=== PATIENT | female | born 1985 | race Caucasian/White ===

== ENCOUNTER 2023-08-06 19:25 | Inpatient (IN) | payer OTHER, SELFPAY ==
--- OUTSIDE RECORDS SUMMARY | 2023-08-06 19:29 | XMS REPORT | Continuity of Care Document ---
Author Name Unknown Address [address] [facility] [address] [place] [address] [facility] thconnect Address [address] [facility] [address] [place] [address] Care Team Providers Care Dryer Feeder Name Role Phone NO, PCP Primary Care Physician UnavailDEBORAH Landaverde Attending Clinician Unavailable Nallely Fleming NP Attending Clinician [id number] Attending Clinician Unavailable ANNKIA_GCBZW_Kaarama_S Attending Clinician Dotty Ruiz NP Attending Clinician [phone] Doctor Unassigned, [place] Attending Clinician DOTTY Oliva Attending Clinician Yaneli vicente GC_GCBZW_Jva_S Admitting Clinician Yaneli vicente Payers Payer Name Policy Type Policy Number Effective Date Expirati on Date Source Problems Condition Name Condition Details Condition Category Status Onset Date Resolution Date Last Treatment Date Treating Clinician Comments Source General counseling and advice on female contracept ion General counseling and advice on female contracept ion Disease Active 09-13 00:00: 00 [facility] Family planning, IUD (intrauter ine device) check/rein sertion/re moval Family planning, IUD (intrauter ine device) check/rein sertion/re moval Disease Active 09-13 00:00: 00 [facility] BMI 32.0-32.9, adult BMI 32.0-32.9, adult Disease Active 09-13 00:00: 00 [facility] Allergies, Adverse Reactions, Alerts Allergy Name Allergy Type Status Severity Reaction(s) Onset Date Inactive Date Treating Clinician Comments Source No Known Drug Allergie s DA Active U 04-25 00:00: 00 [facility] nickel DA Active MS 04-25 00:00: 00 [facility] NO KNOWN ALLERGIE S Drug Class Active [facility] Social History Social Habit Start Date Stop Date Quantity Comments Source History of tobacco use Cigarette Smoker [facility] Gender identity [facility] Sexual orientation [facility] Alcohol intake 2022-09-14 00:00:00 2022-09-14 00:00:00 Current drinker of alcohol (finding) [facility] Tobacco use and exposure 2022-09-13 00:00:00 2022-09-13 00:00:00 Smokeless tobacco non-user [facility] History of Social function 2022-09-13 00:00:00 2022-09-13 00:00:00 [facility] Sex Assigned At 1985 00:00:00 1985 00:00:00 [facility] Smoking Status Start Date Stop Date Source Tobacco smoking consumption unknown [facility] Ex-smoker 2022-09-13 00:00:00 2022-09-13 00:00:00 [facility] Never smoked tobacco [facility] Medications Ordered Medication Name Filled Medication Name Start Date Stop Date Current Medication? Ordering Clinician Indication Dosage Frequency Signature (SIG) Comments Components Source terconazole 80 mg vaginal suppository 09-30 00:00: 00 10-04 04:59 :00 No [id number] 80mg Insert 1 Suppositor y into vagina at bedtime for 3 days. [facility] norethindro ne-ethinyl estradiol (LOESTRIN 05/05, 21,) 1-20 mg-mcg per tablet 09-14 00:00: 00 Yes [id number] 1{tbl} Take 1 tablet by mouth in the morning. [facility] phentermine 37.5 MG capsule phentermine 37.5 MG capsule 2019-0 -11 13:57: 37 Yes 37.5mg Take 37.5 mg by mouth every morning. [facility] Immunizations Ordered Immunization Name Filled Immunization Name Date Status Comments Source PPD Test PPD Test 2023-06-01 00:00:00 Completed [facility] PPD Test PPD Test 2020-08-17 00:00:00 Completed [facility] SARS-COV-2 COVID-19 PFIZER VACCINE 2020-06-29 00:00:00 Completed [facility] SARS-COV-2 COVID-19 PFIZER VACCINE 2020-06-29 00:00:00 Completed [facility] SARS-COV-2 COVID-19 PFIZER VACCINE 2020-06-29 00:00:00 Completed [facility] SARS-COV-2 COVID-19 PFIZER VACCINE 2020-06-29 00:00:00 Completed [facility] SARS-COV-2 COVID-19 PFIZER VACCINE 2020-06-29 00:00:00 Completed [facility] SARS-COV-2 COVID-19 PFIZER VACCINE 2020-06-29 00:00:00 Completed [facility] SARS-COV-2 COVID-19 PFIZER VACCINE 2020-06-29 00:00:00 Completed [facility] SARS-COV-2 COVID-19 PFIZER VACCINE 2020-06-08 00:00:00 Completed [facility] SARS-COV-2 COVID-19 PFIZER VACCINE 2020-06-08 00:00:00 Completed [facility] SARS-COV-2 COVID-19 PFIZER VACCINE 2020-06-08 00:00:00 Completed [facility] SARS-COV-2 COVID-19 PFIZER VACCINE 2020-06-08 00:00:00 Completed [facility] SARS-COV-2 COVID-19 PFIZER VACCINE 2020-06-08 00:00:00 Completed [facility] SARS-COV-2 COVID-19 PFIZER VACCINE 2020-06-08 00:00:00 Completed [facility] SARS-COV-2 COVID-19 PFIZER VACCINE 2020-06-08 00:00:00 Completed [facility] SARS-COV-2 COVID-19 PFIZER VACCINE Unknown Completed [facility] SARS-COV-2 COVID-19 PFIZER VACCINE Unknown Completed [facility] Vital Signs Vital Name Observation Time Observation Value Comments S ource Respiratory rate 2022-09-14 13:51:00 16 /min [facility] Body height 2022-09-14 13:51:00 167.6 cm [facility] Body weight 2022-09-14 13:51:00 91.536 kg [facility] BMI 2022-09-14 13:51:00 32.57 kg/m2 [facility] Oxygen saturation in Arterial blood by Pulse oximetry 2022-09-14 13:51:00 98 /min [facility] Systolic blood pressure 2022-09-14 13:51:00 131 mm[Hg] [facility] Diastolic blood pressure 2022-09-14 13:51:00 81 mm[Hg] [facility] Heart rate 2022-09-14 13:51:00 69 /min [facility] Body temperature 2022-09-14 13:51:00 36.61 Becki [facility] Systolic blood pressure 2022-09-13 18:21:00 133 mm[Hg] [facility] Diastolic blood pressure 2022-09-13 18:21:00 71 mm[Hg] [facility] Heart rate 2022-09-13 18:21:00 80 /min [facility] Body temperature 2022-09-13 18:21:00 36.89 Becki [facility] Respiratory rate 2022-09-13 18:21:00 16 /min [facility] Body height 2022-09-13 18:21:00 167.6 cm [facility] Body weight 2022-09-13 18:21:00 92.262 kg [facility] BMI 2022-09-13 18:21:00 32.83 kg/m2 [facility] Oxygen saturation in Arterial blood by Pulse oximetry 2022-09-13 18:21:00 98 /min [facility] Procedures Procedure Date / Time Performed Performing Clinicia n Source TB SKIN TEST PLACEMENT 2023-06-01 15:36:03 Johanny Fleming [facility] ASSIGNMENT OF BENEFITS 2022-09-13 18:21:03 Docto r Unassigned, [place] [facility] Encounters Start Date/Time End Date/Time Encounter Type Admission Type Attending Clinicians Care Facility Care Department Encounter ID Source 2023-06-03 16:49:39 2023-06-03 16:49:39 Outpatient DEBORAH MEDRANO [facility] [id number] [facility] 2023-06-01 15:50:00 2023-06-01 15:50:00 Office Visit Nallely Fleming [id number], [facility] Diagnosti c [facility], [facility] 1..840.114 350.1.13.41 8.2.7.2.686 [id number] [facility] 2023-02-10 00:00:00 2023-02-10 00:00:00 Outpatient GC_GCBZW_Ka diyala_S [facility] [id number] [facility] 2022-10-04 00:00:00 2022-10-04 00:00:00 Letter (Out) Dotty Wise [facility] 1.840.114 350.1.13.10 4.2.7.2.686 [id number] [facility] 2022-10-03 00:00:00 2022-10-03 00:00:00 Patient Secure Msg Doctor Unassigned, [place] [facility] 1..114 350.1.13.10 4.2.7.2.686 [id number] [facility] 2022-09-30 00:00:00 2022-09-30 00:00:00 Telephone Dotty Wise [facility] 1..114 350.1.13.10 4.2.7.2.686 [id number] [facility] 2022-09-14 08:30:00 2022-09-14 09:16:33 Outpatient R DOTTY WISE [facility]ERY[facility] [id number] [facility] 2022-09-14 08:30:00 2022-09-14 09:16:33 Office Visit Dotty Wise [facility] 1.2.840.114 350.1.13.10 4.2.7.2.686 [id number] [facility] 2022-09-13 13:00:00 2022-09-13 13:42:52 Outpatient R DOTTY WISE [facility] [id number] [facility] 2022-09-13 13:00:00 2022-09-13 13:42:52 [facility] 1.2.840.114 350.1.13.10 4.2.7.2.686 [id number] 134 [id number] [facility] 2022-09-13 00:00:00 2022-09-13 00:00:00 Orders Only Doctor Unassigned, [place] [facility] 1.2.840.114 350.1.13.10 4.2.7.2.686 [id number] [facility] Notes Date/Time Note Provider Source 2023-06-01 16:43:31 [id number]/JXGo HkStrqgQjyVamh42 RBCFgwdfD5YNT7Ch9k+WjIz834pdD+7i4BEs J2729-54-93O13:43:31 * Nallely Fleming, MISTI - 06/01/2023 3:50 PM REPLENISHMENT BUYER Subjective: The patient is a 38 y.o. female who is here for a TB skin test. TB Placement 1. Why are you getting a TB test today? Select all that apply.: a. 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 Have you ever received a BCG (bacille Calmette-Rochelle) vaccination for TB? This vaccine is not widely used in the [place] and is more common in countries where TB is common.: b. No 3. Have you ever received a positive test result for TB?: b. No 4. Have you ever had a serious reaction to a TB skin test?: b. No 5. Have you received a TB diagnosis or treatment for TB in the past?: b. No 6. Are you experiencing any of the following TB symptoms? Select all that apply.: g. No symptoms 7. Do you have a known allergy to phenol?: b. No 8. Have you had any of the following vaccines in the last 30 days? MMR (measles, mumps, rubella), rotavirus, smallpox, chickenpox or yellow fever: b. No 9. Have you had the flu, chickenpox, measles or mumps in the last 30 days?: b. No 10. Do you have a history of fainting after receiving a vaccine or injection? This can include fainting, feeling like you might faint, or feeling concerned about fainting.: b. No Any patient-supplied information was reviewed and discussed with the patient.: Quentin as reviewed Objective: Assessment/Plan: PPD placed per [facility]. Patient Instructed to return in 48-72 hours for PPD reading. 04982-5Kosyumv of Present IllnessLNProgress [id number]-2716-O0HD-IE04 1891DNO1DBJyojgqavl for patient czxsEmzugvgApzcaricuOESIx00 Section NarrativeNARRATIVEFormatted C-CDA narrative textCVSHCVS Health & [facility] Ebgwf[id number] 278YLVF3094-38-37I14:43:31 [facility] 2023-06-01 16:43:31 [id number] 2LTV6vqBZccoRYlF iX7toAouuiRauZ0R1bImvtovdySfoLv2+5RC w0148-45-28J53:43:31+ +----- -------+ +--- +| Health Maintenance | Due Date | Last Done | Comments |+ + + + ========+| Depression: Screening Annually using PHQ9 in Zyuczv09 yrs orabove (or HM | 2002 | | || Modifier)([facility]) | | | |+ + + + --------+| Hepatitis C Virus Infection in Adolescents and Adults: Screening (or Modifier) | 2002 | | || ([facility] ) | | | |+ + + + --------+| SDOH Screening Reminder: Annually for all adults ([facility] ) | 2002 | | |+ + + + --------+| Tobacco Smoking Cessation: in Adults excluding Women: Behavioral and | 2002 | | || Pharmacotherapy Interventions ([facility]) | | | |+ + + + --------+| Lipid Screening: Once for Women aged 20 to 45 yrs ([facility]) | 2004 | | |+ + + + --------+| Cervical Cancer Screenin-65 yrs of age (or Modifier) | 2005 | | |+ + + + --------+| Cervical Cancer Screening: Pap every 3 yrs pts age 21-65 | 2005 | | |+ + + + --------+| Cervical Cancer: Pap Screening with Modifier timing ([facility]) | 2005 | | |+ + + + --------+| Cervical Cancer: hrHPV alone or with cotesting Pap for Pts 30-65yrs screening | 2005 | | || every 5yrs ([facility]) | | | |+ + + + --------+| Flu Vaccination: Yearly for ages 18mos through 64 years (or Modifier)([facility] ) | 11/14/2022 | | |+ + + + --------+| COVID-19 Vaccine Screening: Initial Series and Booster Status ([facility]) (3 - | 12/15/2022 | 06/29/2020, 06/08/2020 | || 2022- season) | | | |+ + + + --------+| Zoster/Shingles Vaccine Series Screening: Adults aged 18+ yrs (or HM | 2034 | | || Modifiers)([facility] ) (1 of 2) | | | |+ + + + --------+| Pneumococcal Vaccination Screening: Pts 0-19 & 19-64 yrs of age ([facility]) | Aged Out | | No longer eligible based on patient's age to complete this topic |+ + + + --------+[id number] of TreatmentLNPlan of TreatmentTXT1.2.840.273624.1.13.418. 2.7.8.034728.8904240705|2..1.1 54302.10.20.22.2.10AVAvailable for patient hhucFvdxhxiCteixkaxpTBCSd37 Section NarrativeNARRATIVEFormatted C-CDA narrative textCVSHCVS Health & [facility] Mdj[id number] 556MWYJ6914-96-18S83:43:31 [facility] 2023-06-01 16:43:31 [id number]+ +ty2AjDmm4fAJCZW jhar4pBWGegXaVO2okpc2feWee/TFyxVAEJg Q8711-05-36T89:43:31Not on eanu84199-4Fewmgee EquipmentLNMedical DevicesTXT1.2.840.840056.1.13.418.2. 7.8.800339.1986645775|2.0.1.113 883.10.20.22.2.23AVAvailable for patient fsfnWxlafwzLvtrcagdxKCEUy15 Section NarrativeNARRATIVEFormatted C-CDA narrative textCVSHCVS Health & [facility] Eiuyk[id number] 991ZLZV1578-58-62N87:43:31 [facility] 2023-06-01 16:43:31 [id number] DMLmUMplg3l/u+xE r6GwyYa2fBJWnJAuiFTp4GB4EMB0G2dgb/Zz G8931-41-86D38:43:31+ ---------+| Diagnosis |+ +| Screening examination for pulmonary tuberculosis - Primary |+ +06761-3Dc sessmentsLNVisit UgyeysiztHVV40636172-378G-8806-H2WZ- AL332241QWG0NWNrjxjqodn for patient isszFsehwyeBprmovbinOBEDl40 Section NarrativeNARRATIVEFormatted C-CDA narrative textCVSHCVS Health [facility] Ijghg[id number] 195FLVU0958-46-63P92:43:31 [facility] 2023-06-01 16:43:31 [id number] MtPnT30Ln2LiT5er EhaRO4Y6yHtb4J2kSuIbuN3yTTzU0fDQrB/c d8800-13-87C52:43:31+ -+ + + + +| Dryer Feeder | Relationship | Specialty | Start Date | End Date |+ + += + +====== ====+| No, Pcp, PET FEEDER | PCP - General | Family Medicine | 10/24/18 | || | | | | || N/A Do not use | | | | |+ + +- + +------ ----+85462-7Etgpsye Care team informationLNCare TeamsTXT1.2.840.449127.1.13.418.2.7. 8.886760.6701146110|2.16.840.1.15164 3.10.20.22.2.500AVAvailable for patient qrgvDiazqgiOaplcbgcoNOYUm22 Section NarrativeNARRATIVEFormatted C-CDA narrative textCVSHCVS [facility] XmtrvDmfj[id number] 348CFIY0373-82-17Z29:43:31 [facility] 2023-06-01 16:43:31 [id number] pMb3ayQq7ZL4E7IV yGYZU1YBZLD6xa8448R24+A7E5wKwJHItjOo Q1594-38-00C86:43:31 * + +| Reason | Comments |+ +========= =+| TB Skin Test Placement | |+ +--------- -+03933-6Okduzf for VisitLNReason for VisitTXT1.2.840.205495.1.13.418.2.7. 8.886716.1445413350|2.16.840.1.60590 3.10.20.22.2.12AVAvailable for patient saqcRixwagqNlvulhjwhDNGQh43 Section NarrativeNARRATIVEFormatted C-CDA narrative textCVSHCVS Health [facility] Nwzfx[id number] 655QPWI2125-46-01B36:43:31 [facility] 2023-06-01 16:43:31 [id number] c2mjTpNIveYSioMZ 9bPeUzrl6Zbe+8sUaP5J0uhMbYMmRlyVANnN z0266-49-67W47:43:31+ +------ ----+ +| Functional Status | Response | Date of Assessment |+ + + ======+| Is the person deaf or does he/she have serious difficulty hearing? | | |+ + + ------+| Is this person blind or does he/she have serious difficulty seeing even when | | || wearing glasses? | | |+ + + ------+| Does this person have serious difficulty walking or climbing stairs? | | |+ + + ------+| Does this person have difficulty dressing or bathing? | | |+ + + ------+| Because of a physical, mental, or emotional condition, does this person have | | || difficulty doing errands alone such as visiting a doctor's office or shopping? | | |+ + + ------++ + +--------- +| Cognitive Status | Response | Date of Assessment |+ =========+ + =====+| Because of a physical, mental, or emotional condition, does this person have | | || serious difficulty concentrating, remembering, or making decisions? | | |+ ---------+ + -----+59781-3Lzlyroitdk StatusLNFunctional StatusTXT1.2.840.472580.1.13.418.2.7 .8.972880.6823663100|2.16.840.1.1138 83.10.20.22.2.14AVAvailable for patient tmriFrouogsDbsbzmtnhLCVDs12 Section NarrativeNARRATIVEFormatted C-CDA narrative textCVSHCV[facility] Qzjxb[id number] 306IXEL7766-54-14O09:43:31 [facility] 2023-06-01 16:43:31 [id number] S33zsOx5OEV546mU ag8SejGjMfqWITJuY7JUcANOn6D0i/Ny4yoy l6321-24-91P45:43:31 * Patient Instructions * Nallely Fleming NP - 06/01/2023 3:50 PM REPLENISHMENT BUYER Follow up: Return to [facility] within 48 - 72 hours to have your skin test read. If you wait more than 72 hours to have it read, the skin test must be re-administered. Tuberculin Skin Test- Placement IMPORTANT: You must return to [facility] in 48-72 hours to have the results read by the practitioner. The test cannot be read before 48 hours and if more than 72 hours have gone by, the skin test must be repeated as the results are invalid. What is tuberculosis (TB)? Tuberculosis is a bacterial infection that affects the lungs. It may also be found in other parts of the body like the brain, kidneys, or spine. It is spread from couane-gd-zvbbnz through the air. Latent TB infection is when the TB germs live in your body without causing symptoms. These "sleeping" germs cannot be passed on to anyone else. Active TB disease is when the germs are active in your body, causing symptoms such as weakness, weight loss, fever, night sweats, and coughing (with or without blood). It is important to screen for this disease because people infected with TB can become seriously ill if they do not receive treatment. What is a tuberculin skin test? A tuberculin skin test is one way to help detect a TB infection. A small needle is used to inject the testing material (tuberculin purified protein derivative) under the skin on your arm. This will form a small circular bump where the testing material was injected. What should I watch for after receiving the tuberculin skin test? Serious allergic reactions from the tuberculin skin test are very rare. If they do happen, it would be within a few minutes to a few hours of the receiving the shot. Mild itching, swelling, or irritation at the injection site may occur. These reactions do not require treatment and usually go away within a week. How should I care for the injection site? ? Avoid scratching, rubbing, or wiping the injection site ? Avoid putting creams, lotions, or bandages over the injection site ? Getting the area wet is not harmful, but the injection site should not be scrubbed or wiped. Pat the area dry if it becomes wet. 52602-2UmahumwlktvmNUHsbzaxi DbedafilbtnzMQA41487902-960E-178T-R7 DE-UV886782QTY8LQDnnnguyzt for patient tcosHzbforaGnqfqhazkWDFIg06 Section NarrativeNARRATIVEFormatted C-CDA narrative textCVSHCV[facility] Gfcgw[id number] 353JVTD6289-84-25Y84:43:31 [facility] 2018-05-20 17:08:00 FOgnmyfpmfv9054699Oa rbECtk2SLCyX4X1r f7wP5riede+Wlx8jByiq7uHfna64e36gsMiq Cgzmpg8Gpx6606-88-41X38:08:785823-55 [address] [facility] [place] [address] PATIENT NAME: JUANITA TAYLOR ADMIT DATE: 05/20/18ACCOUNT NO: [id number] ROOM NO: AGE: 33 REPORT TYPE: OPERATIVE REPORT SEX: F ADMITTING PHYSICIAN: ATTENDING PHYSICIAN:Dimas Peng MD OPERATION DATE: 05/20/2018 PREOPERATIVE DIAGNOSES:1. Recurrent volar ganglion cyst, right wrist.2. De Quervain's tenosynovitis, right wrist.3. Right carpal tunnel syndrome. POSTOPERATIVE DIAGNOSIS:1. Recurrent volar ganglion cyst, right wrist.2. De Quervain's tenosynovitis, right wrist (severe, 2 compartments withseptum).3. Right carpal tunnel syndrome, chronic (moderate). PROCEDURES:1. Redo excision of recurrent volar ganglion cyst, right wrist.2. Release of first dorsal compartment, right wrist (severe, 2 compartmentswith septum).3. Release of right carpal tunnel with decompression of median nerve(moderate). SURGEON: Dimas Peng MD CONFERENCE SERVICES DIRECTOR: ANESTHESIA: General anesthesia, laryngeal mask airway technique, supineposition. 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 She previously underwent surgeryfor excision of a volar ganglion cyst of the right wrist 2 years ago by anothersurgeon. The volar ganglion cyst has recurred. The cyst is painful andradiates across the wrist. She also has painful de Quervain's tenosynovitis ofthe right wrist, aggravated with lifting. She has intermittent numbness andtingling to the right hand, radiating to the thumb, index, and middle fingerswith some nocturnal symptoms. Surgery for redo excision of the recurrent volar ganglion cyst, right wrist, isrecommended, as well as release of the first dorsal compartment, right wrist,and release of the right carpal tunnel. The risk and expectations for surgerywere discussed. Complications can include infection, hematoma, continued painor numbness, recurrent cyst, radial artery injury, subluxing tendons, palmartenderness, scar, and anesthetic risks. No guarantees can be given. She PATIENT NAME: JUANITA TAYLOR understands, and gives informed consent to proceed with surgery for her rightwrist and hand. PROCEDURE IN DETAIL: The patient received 2 gm of IV Kefzol antibiotic. Shewas taken to operating room #11. General anesthesia was induced. Laryngealmask airway technique was utilized. A previously calibrated pneumatictourniquet was applied. The right hand and arm was then prepped with Betadinesoap solution, followed by an alcohol rinse solution. Sterile drapes wereplaced about the right arm. Time-out was performed, identifying the correct procedures for the right wristand hand. The right arm was elevated, and exsanguinated with an Esmarchbandage. The tourniquet was elevated to 250 mmHg. Surgery to release the first dorsal compartment, right wrist was performedfirst. A longitudinal incision was selected, given the need for redo surgery onthe volar aspect of the right wrist. A 2.5-cm longitudinal incision was placedover the first dorsal compartment. The skin was incised. Subcutaneous tissuewas spread longitudinally, protecting the radial sensory nerves. The extensorretinaculum of the first dorsal compartment was thick. The retinaculum wasincised longitudinally from a distal to the proximal aspect. There was aseparate accessory compartment for the EPB tendon. This septum was incised andreleased as well. Portion of the septum was removed. Excellent release of thefirst dorsal compartment was achieved. The tendons were stable and did notsublux. Subcutaneous tissue was infiltrated with Marcaine. The subcutaneoustissue was approximated with interrupted #5-0 Vicryl sutures. The skin wasapproximated with 5-0 Monocryl suture in a subcuticular fashion, reinforced withinterrupted #6-0 nylon sutures. Release of the right carpal tunnel was then performed. A lead hand was used tosupport the hand in the palm up position. A 3.0 longitudinal incision wasplaced at the proximal aspect of the right palm. The skin was incised. Subcutaneous tissue was divided cleanly. The fat pad was retracted in an ulnardirection. The transverse carpal ligament was incised and released along theulnar aspect of the carpal tunnel. The ligament was thick. Complete releasewas performed in a proximal direction, including the antebrachial fascia of theforearm. Complete release was then performed in a distal direction. The mediannerve did demonstrate a moderate hourglass deformity. Adhesions were releasedbetween the nerve and the undersurface of the ligament. The motor recurrentbranch was extraligamentous. There was minimal thickening of the flexor tendonlinings. Excellent release of the right carpal tunnel was achieved. The woundwas irrigated. Subcutaneous tissue was infiltrated with Marcaine. Thesubcutaneous tissue was approximated with interrupted #5-0 Vicryl sutures. Skinwas carefully approximated with interrupted #6-0 nylon sutures. Redo excision of the recurrent volar ganglion cyst, right wrist was thenperformed. The previous incision was longitudinal and the scar had spread withsome keloid formation. A zigzag extended incision approach was selected for theredo surgery. The zigzag incision was drawn on the wrist, and then the skin wasincised. Moderate fibrosis was underneath the previous keloid scar. Thisfibrosis was incised and mobilized. The radial artery was identified at theproximal aspect of the incision. The radial artery was carefully traced in aproximal to a distal direction. Below the radial artery was a recurrent volarganglion cyst. The cyst measured approximately 2 x 2 x 1 cm in size and was PATIENT NAME: JUANITA TAYLOR multilobulated. The cyst was carefully elevated off the FCR tendon sheath. Thecyst was dissected down to the volar ST capsule. The cyst was decompressed toallow for better visualization of the volar capsule. The cyst and sac were thenexcised and removed and sent to pathology for specimen. Partial excision of thevolar capsule was performed to minimize the risk for recurrent ganglion cyst. The tourniquet was released. Hemostasis was excellent. There was no injury tothe radial artery or its branches. There was brisk flow and refill of the handin the fingers. The wound was irrigated. Subcutaneous tissue was infiltratedwith Marcaine. The tourniquet was elevated for final closure. Subcutaneoustissue was approximated with interrupted #5-0 Vicryl sutures. Skin wascarefully approximated with 5-0 Monocryl suture in a subcuticular fashion,reinforced with interrupted #6-0 nylon sutures. It was hoped that the moreprecise approximation of the skin might decrease the keloid formation that sheexperienced with the first surgery. The incisions were dressed with Xeroform,followed by the application of sterile dressings and a volar dorsal splint. Total tourniquet time for the right hand and wrist surgeries was 62 minutes. The procedures were tolerated well by the patient. She was extubated in theoperating room, and returned to the recovery room in good condition. Dictated By: Dimas Peng MD WT: OP:KRISTY/JOSE L/NTSDD: 05/20/2018 17:08:31DT: 05/20/2018 19:22:05Conf#: [id number]/[facility]#: [id number] Authenticated by Dimas Peng MD On 05/30/2018 07:05:22 AM at 0705 PATIENT NAME: JUANITA TAYLOR [id number] for patient [id number] [facility]
[2023-08-06] MEDS ORDERED: ONDANSETRON 4 MG/2 ML VIAL ONE (20:14)
[2023-08-06] MEDS ORDERED: NA CHLORIDE 0.9% 1,000 ML ONE (20:14)
[2023-08-06 20:39] LABS: Absolute Basophils 0.1 K/uL (0-0.5); Absolute Eosinophils 0.2 K/uL (0-0.5); Absolute Lymphocytes (CBC) 2.7 K/uL (0.7-4.9); Absolute Monocytes 0.9 K/uL (0.1-1.3); Basophils % 0.4 % (0-1.3); Hematocrit 40.8 % (36.0-45.0); Hemoglobin 13.8 g/dL (12.0-15.0); Lymphocytes % 22.8 % (15.3-44.8); MCH 32.5 pg (27.0-35.0); MCHC 33.8 g/dL (32.0-36.0); MCV 96.3 fL (80-100); MPV 9.7 fL (7.6-11.3); Monocytes % 7.9 % (3.3-12.3); Neutrophils % 66.9 % (41.7-73.7); Platelets 283 thou/uL (152-406); RBC Red Blood Cell Count 4.24 M/uL (3.86-4.86); Red Cell Distribution Width 13.2 % (12.1-15.2)
[2023-08-06 20:40] LABS: Specific Gravity 1.005 (1.005-1.030); Urine Bilirubin NEGATIVE (Negative); Urine Blood Negative (Negative); Urine Clarity Clear (Clear); Urine Color Colorless (Yellow); Urine Glucose NEGATIVE (Negative); Urine Ketones 1+ (Negative); Urine Microscopic Reflex YN NO UMIC; Urine Nitrite NEGATIVE (Negative); Urine Protein NEGATIVE (Negative); Urine Urobilinogen Normal (Normal); Urine pH 5.5 (5.0-7.0)
[2023-08-06 20:46] LABS: PT Prothrombin Time 11.9 SECONDS (9.5-12.5); Protime INR 1.08
[2023-08-06 20:55] LABS: Albumin 3.7 g/dL (3.4-5.0); Albumin/Globulin Ratio 1.1 (1.1-1.8); Anion Gap 11.3 mEq/L (5.0-15.0); Bilirubin Total 0.7 mg/dL (0.2-1.0); Globulin 3.5 g/dL (2.3-3.5); Potassium 3.3 mEq/L (3.5-5.1); Protein, Total 7.2 g/dL (6.4-8.2)
[2023-08-06] MEDS ORDERED: KETOROLAC 30 MG/ML INJ ONE (21:08)
--- NOTE | 2023-08-06 21:40 | RAD REPORT ---
EXAM DESCRIPTION: RAD - Chest Single View - 08/06/2023 9:31 pm CLINICAL HISTORY: PALPITATIONS Chest pain. COMPARISON: No comparisons FINDINGS: Portable technique limits examination quality. The lungs are grossly clear. The heart is normal in size. No displaced fractures.Small hiatal hernia. IMPRESSION: No acute intrathoracic process suspected.
--- NOTE | 2023-08-07 00:42 | ER ---
Nurse's Notes [facility] Name: Batsheva Teixeira Age: 38 yrs Sex: Female : 1985 Arrival Date: 08/06/2023 Time: 19:25 Bed 17 Private MD: Diagnosis: Left sided colitis with rectal bleeding;Right Perianal Abscess Presentation: 08/05 19:40 Chief complaint: Patient states: this morning around 0330 had cramping, dizziness, cold km8 sweats; finally had a BM and had blood at the end of the BM; reports 10 rounds of blood coming from rectum with out stools and pt also reports palpitations. Coronavirus screen: Client denies travel out of the [place] in the last 14 days. Ebola Screen: No symptoms or risks identified at this time. Initial Sepsis Screen: Does the patient meet any 2 criteria? No. Patient's initial sepsis screen is negative. Does the patient have a suspected source of infection? No. Patient's initial sepsis screen is negative. Risk Assessment: Do you want to hurt yourself or someone else? Patient reports no desire to harm self or others. Onset of symptoms was August 06, 2023 at 03:30. 19:40 Method Of Arrival: Ambulatory km8 19:40 Acuity: RAUL 3 km8 Triage Assessment: 19:42 General: Appears in no apparent distress. uncomfortable, Behavior is calm, cooperative, km8 appropriate for age. Pain: Complains of pain in right lower quadrant and left lower quadrant Pain at worst was 4 out of 10 on a pain scale. Quality of pain is described as crampy, Is continuous. EENT: No signs and/or symptoms were reported regarding the EENT system. Neuro: Level of Consciousness is awake, alert, obeys commands, Oriented to person, place, time, situation, Reports dizziness. Cardiovascular: Reports palpitations, Denies chest pain, shortness of breath, Patient's skin is warm and dry. Respiratory: Airway is patent Respiratory effort is even, unlabored, Respiratory pattern is regular, symmetrical. GI: Abdomen is non-distended, Reports lower abdominal pain, cramping, rectal bleeding, Patient currently denies nausea, vomiting. : No signs and/or symptoms were reported regarding the genitourinary system. Derm: No signs and/or symptoms reported regarding the dermatologic system. Skin is intact, is healthy with good turgor, Skin is dry, Skin is pink, warm \T\ dry. normal, Skin temperature is warm. Musculoskeletal: No signs and/or symptoms reported regarding the musculoskeletal system. Range of motion: intact in all extremities. 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 - Infectious Disease History:: Denies. - Social history:: Smoking status: Reported history of juuling and/or vaping. Patient uses alcohol, only on a social basis. Patient/guardian denies using street drugs. Screenin:01 [facility] ED Fall Risk Assessment (Adult) History of falling in the last 3 months, jj7 including since admission No falls in past 3 months (0 pts) Confusion or Disorientation No (0 pts) Intoxicated or Sedated No (0 pts) Impaired Gait No (0 pts) Mobility Assist Device Used No (0 pt) Altered Elimination No (0 pt) Score/Fall Risk Level 0 - 2 = Low Risk Oriented to surroundings, Maintained a safe environment, Educated pt \T\ family on fall prevention, incl call for assistance when getting out of bed. Abuse screen: Denies threats or abuse. Nutritional screening: No deficits noted. Tuberculosis screening: No symptoms or risk factors identified. Assessment: 20:01 GI: Abdomen is flat, Abd is soft and non tender Reports rectal bleeding, LOWER ABD jj7 CRAMPING. 21:25 Reassessment: FINISHED DRINKING ORAL CONTRAST. jj7 08/06 02:20 Reassessment: SBAR FAXED TO 4TH FLOOR. ATTEMPTED TO CALL TO SEE IF RECEIVED. NO ANSWER jj7 ON 4TH FLOOR. 03:03 Reassessment: INFORMED ANDERS MIMS THAT PT IS ON HER WAY UP. jj7 Vital Signs: 08/05 19:40 BP 157 / 100; Pulse 75; Resp 18; Temp 98(TE); Pulse Ox 100% ; Weight 86.18 kg (R); km8 Height 5 ft. 6 in. (R); Pain 4/10; 21:00 BP 155 / 80; Pulse 67; Resp 19; Pulse Ox 100% ; jj7 22:00 BP 136 / 75; Pulse 67; Resp 17; Pulse Ox 96% ; Pain 0/10; jj7 23:00 BP 130 / 73; Pulse 73; Resp 16; Pulse Ox 98% ; jj7 08/06 00:00 BP 134 / 83; Pulse 68; Resp 17; Pulse Ox 98% ; jj7 01:00 BP 150 / 77; Pulse 68; Resp 16; Pulse Ox 100% ; Pain 5/10; jj7 02:00 BP 145 / 83; Pulse 69; Resp 17; Temp 98.2; Pulse Ox 98% ; Pain 0/10; jj7 02:59 BP 149 / 82; Pulse 68; Resp 17; Pulse Ox 100% ; Pain 0/10; j7 08/05 19:40 Body Mass Index 30.67 (86.18 kg, 167.64 cm) [facility] 08/05 19:40 Pain Scale: Adult [facility] 22:00 Pain Scale: Adult jj7 01:00 Pain Scale: Adult jj7 02:00 Pain Scale: Adult jj7 02:59 Pain Scale: Adult jj7 ED Course: 08/05 19:29 Patient arrived in ED. im 19:35 Gianluca Rodriguez PA is PHCP. cp 19:35 Giovanni Umaña MD is Attending Physician. cp 19:42 Triage completed. km8 19:45 Arm band placed on right wrist. 8 19:55 Yolanda Trejo RN is Primary Nurse. jj7 20:01 Patient has correct armband on for positive identification. Placed in gown. Bed in low jj7 position. Call light in reach. Adult w/ patient. Warm blanket given. 20:01 Provided Education on: USE OF CALL PEREZ. jj7 20:04 EKG done, by java technical manager. reviewed by Gianluca SANTIAGO. oe 20:20 Inserted saline lock: 20 gauge in right antecubital area, using aseptic technique. jj7 Blood collected. 20:28 Ptt, Activated Sent. jj7 20:28 PT-INR Sent. jj7 20:29 CBC with Diff Sent. jj7 20:29 CMP Sent. jj7 20:29 Lipase Sent. jj7 20:29 Test, Urine Sent. jj7 20:29 Urinalysis w/ reflexes Sent. jj7 21:32 XRAY Chest (1 view) In Process Unspecified. 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 jj7 23:42 CT Abd/Pelvis - PO and IV Contrast In Process Unspecified. EDMS 08/06 00:41 Tc Bryant MD is Hospitalizing Provider. cp 03:00 Patient admitted, IV remains in place. jj7 Administered Medications: 08/05 20:28 Drug: NS 0.9% IV 1000 ml IV at 1 bolus Per protocol; 1000 mL bolus Route: IV; Rate: 1 jj7 bolus; Site: right antecubital; 08/06 01:09 Follow up: Response: No adverse reaction; IV Status: Completed infusion; IV Intake: bm8 1000ml 08/05 20:29 Drug: Ondansetron IVP 4 mg IVP once; over 2 minutes Route: IVP; Site: right antecubital;jj7 08/06 01:10 Follow up: Response: No adverse reaction bm8 08/05 21:12 Drug: Ketorolac IVP 15 mg IVP once Route: IVP; Site: right antecubital; jj7 08/06 01:09 Follow up: Response: No adverse reaction bm8 01:09 Drug: NS 0.9% IV 1000 ml IV at 1 bolus Per protocol; 1000 mL bolus Route: IV; Rate: 1 bm8 bolus; Site: left antecubital; 02:09 Follow up: IV Status: Completed infusion jj7 01:15 Drug: morphine IVP or IV 4 mg IVP once over 4 mins Route: IVP; Infused Over: 4 mins; jj7 Site: left antecubital; 02:09 Follow up: Response: Marked relief of symptoms; Pain is decreased jj7 01:16 Drug: Ondansetron IVP 4 mg IVP once; over 2 minutes Route: IVP; Site: left antecubital; jj7 02:09 Follow up: Response: Marked relief of symptoms jj7 01:48 Drug: metroNIDAZOLE IVPB 500 mg 100 ml IVPB once over 30 mins Volume: 100 ml; Route: jj7 IVPB; Infused Over: 30 mins; Site: left antecubital; 02:20 Follow up: IV Status: Completed infusion j7 02:20 Drug: Piperacillin-Tazobactam IVPB 3.375 grams IVPB once over 60 mins; (mix in NS 100 jj7 mL) Route: IVPB; Infused Over: 60 mins; Site: left antecubital; Medication: 08/05 20:01 VIS not applicable for this client. jj7 Intake: 08/06 01:09 IV: 1000ml; Total: 1000ml. bm8 Outcome: 00:42 Decision to Hospitalize by Provider. cp 03:00 Admitted to Med/surg accompanied by tech, via wheelchair, room 409, with chart, Report jj7 called to SBAR FAXED TO 4TH FLOOR 03:00 Condition: improved 03:05 Patient left the ED. jj7 Signatures: Dispatcher [employer] EDMS Gianluca Rodriguez PA PA cp Espinosa, Orlando oe Johnson, Juwairiyah, RN RN jj7 Phyllis Rivero Katie, RN RN km8 Mario Torres, RN RN bm8
--- NOTE | 2023-08-07 00:42 | EDPHYS ---
Physician Documentation [facility] Name: Batsheva Teixeira Age: 38 yrs Sex: Female : 1985 Arrival Date: 08/06/2023 Time: 19:25 Bed 17 Private MD: ED Physician Giovanni Umaña HPI: 08/05 20:00 This 38 yrs old Female presents to ER via Ambulatory with complaints of Bloody Stools, cp Abdominal Pain, Dizziness, Palpitations. 20:00 The patient presents to the emergency department with rectal bleeding, gross blood, cp multiple episodes with a tablespoon amount observed. 20:00 Onset: The symptoms/episode began/occurred this morning. Abdominal pain: described as cp crampy, located in the right lower quadrant and left lower quadrant, that does not radiate. Associated signs and symptoms: Pertinent positives: dizziness at rest, palpitations, Pertinent negatives: chest pain, constipation, fever, shortness of breath, vomiting. Severity of symptoms: in the emergency department the symptoms are unchanged despite home interventions. The patient has not experienced similar symptoms in the past. 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 - Infectious Disease History:: Denies. - Social history:: Smoking status: Reported history of juuling and/or vaping. Patient uses alcohol, only on a social basis. Patient/guardian denies using street drugs. ROS: 20:05 Constitutional: Negative for body aches, chills, fever, poor PO intake, cp 20:05 Abdomen/GI: Positive for abdominal pain, rectal bleeding, of the right lower quadrant and left lower quadrant, Negative for vomiting, diarrhea, constipation, 20:05 Cardiovascular: Positive for palpitations, cp 20:05 Respiratory: Negative for cough, shortness of breath, wheezing, 20:05 Neuro: Positive for dizziness, Negative for altered mental status, weakness, Exam: 20:05 ECG was reviewed by the Attending Physician. cp 20:10 Constitutional: The patient appears in no acute distress, alert, awake, non-toxic, well cp developed, well nourished, 20:10 Head/Face: Normocephalic, atraumatic. cp 20:10 Eyes: Periorbital structures: appear normal, Conjunctiva: normal, no exudate, no injection, Sclera: no appreciated abnormality, Lids and lashes: appear normal, bilaterally, 20:10 ENT: External ear(s): are unremarkable, Nose: is normal, Mouth: Lips: moist, Oral mucosa: pink and intact, moist, Posterior pharynx: Airway: no evidence of obstruction, patent, 20:10 Chest/axilla: Inspection: normal, 20:10 Cardiovascular: Rate: normal, Rhythm: regular, 20:10 Respiratory: the patient does not display signs of respiratory distress, Respirations: normal, no use of accessory muscles, no retractions, labored breathing, is not present, Breath sounds: are clear throughout, no decreased breath sounds, no stridor, no wheezing, 20:10 Abdomen/GI: Inspection: abdomen appears normal, Bowel sounds: active, all quadrants, Palpation: soft, in all quadrants, moderate abdominal tenderness, in the right lower quadrant and left lower quadrant, rebound tenderness, is not appreciated, involuntary guarding, is not appreciated, 20:10 Back: pain, is absent, ROM is normal, Vital Signs: 19:40 BP 157 / 100; Pulse 75; Resp 18; Temp 98(TE); Pulse Ox 100% ; Weight 86.18 kg (R); km8 Height 5 ft. 6 in. (R); Pain 4/10; 21:00 BP 155 / 80; Pulse 67; Resp 19; Pulse Ox 100% ; jj7 22:00 BP 136 / 75; Pulse 67; Resp 17; Pulse Ox 96% ; Pain 0/10; jj7 23:00 BP 130 / 73; Pulse 73; Resp 16; Pulse Ox 98% ; jj7 0423 00:00 BP 134 / 83; Pulse 68; Resp 17; Pulse Ox 98% ; jj7 01:00 BP 150 / 77; Pulse 68; Resp 16; Pulse Ox 100% ; Pain 5/10; jj7 02:00 BP 145 / 83; Pulse 69; Resp 17; Temp 98.2; Pulse Ox 98% ; Pain 0/10; jj7 02:59 BP 149 / 82; Pulse 68; Resp 17; Pulse Ox 100% ; Pain 0/10; jj7 08/05 19:40 Body Mass Index 30.67 (86.18 kg, 167.64 cm) [facility] 08/05 19:40 Pain Scale: Adult km8 22:00 Pain Scale: Adult jj7 01:00 Pain Scale: Adult jj7 02:00 Pain Scale: Adult jj7 02:59 Pain Scale: Adult jj7 MDM: 08/05 19:48 Patient medically screened. cp 21:00 Differential diagnosis: gastritis, diverticulitis, hemorrhoids, colitis. 08/06 00:40 Management of patient was discussed with the following: Lithoplate Maker: DR Juarez will cp consult after discussion and patient will be admitted to services of hospitalist, DR Bryant. 01:26 Data reviewed: vital signs, nurses notes. 08/05 20:01 Order name: CBC with Diff; Complete Time: 21:01 cp 08/05 21:01 Interpretation: Normal except: WBC 12.00. cp 08/05 20:01 Order name: CMP; Complete Time: 21:01 cp 08/05 20:01 Order name: Lipase; Complete Time: 21:01 cp 08/05 20:01 Order name: Test, Urine; Complete Time: 21:01 cp 08/05 20:01 Order name: Urinalysis w/ reflexes; Complete Time: 21:01 cp 08/05 20:01 Order name: PT-INR; Complete Time: 21:01 cp 08/05 20:01 Order name: Ptt, Activated; Complete Time: 21:01 cp 08/06 00:26 Order name: Lactate w/ 2H reflex if indic. cp 08/06 00:26 Order name: Blood Culture Adult (2) cp 08/06 01:00 Order name: CBC with Automated Diff EDMS 08/06 01:00 Order name: CBC with Automated Diff EDMS 08/06 01:00 Order name: Comprehensive Metabolic Panel EDMS 08/06 01:00 Order name: Comprehensive Metabolic Panel EDMS 08/05 20:35 Order name: XRAY Chest (1 view); Complete Time: 21:42 cp 08/05 21:42 Interpretation: Report review. 08/05 22:24 Order name: CT Abd/Pelvis - PO and IV Contrast cp 08/05 19:51 Order name: EKG; Complete Time: 19:51 cp 08/05 19:51 Order name: Orthostatics cp 08/05 19:51 Order name: EKG - Nurse/Tech; Complete Time: 19:56 cp 08/05 20:01 Order name: IV Saline Lock; Complete Time: 20:29 cp 08/05 20:01 Order name: Labs collected and sent; Complete Time: 20:29 cp EC/22 20:05 Rate is 83 beats/min. Rhythm is regular. PA interval is normal. QRS interval is normal. cp QT interval is normal. T waves are Inverted in lead aVR. Interpreted by me. Reviewed by me. Administered Medications: 20:28 Drug: NS 0.9% IV 1000 ml IV at 1 bolus Per protocol; 1000 mL bolus Route: IV; Rate: 1 jj7 bolus; Site: right antecubital; 08/06 01:09 Follow up: Response: No adverse reaction; IV Status: Completed infusion; IV Intake: bm8 1000ml 08/05 20:29 Drug: Ondansetron IVP 4 mg IVP once; over 2 minutes Route: IVP; Site: right antecubital;j7 08/06 01:10 Follow up: Response: No adverse reaction [facility] 08/05 21:12 Drug: Ketorolac IVP 15 mg IVP once Route: IVP; Site: right antecubital; j7 08/06 01:09 Follow up: Response: No adverse reaction 8 01:09 Drug: NS 0.9% IV 1000 ml IV at 1 bolus Per protocol; 1000 mL bolus Route: IV; Rate: 1 bm8 bolus; Site: left antecubital; 02:09 Follow up: IV Status: Completed infusion jj7 01:15 Drug: morphine IVP or IV 4 mg IVP once over 4 mins Route: IVP; Infused Over: 4 mins; jj7 Site: left antecubital; 02:09 Follow up: Response: Marked relief of symptoms; Pain is decreased jj7 01:16 Drug: Ondansetron IVP 4 mg IVP once; over 2 minutes Route: IVP; Site: left antecubital; jj7 02:09 Follow up: Response: Marked relief of symptoms jj7 01:48 Drug: metroNIDAZOLE IVPB 500 mg 100 ml IVPB once over 30 mins Volume: 100 ml; Route: jj7 IVPB; Infused Over: 30 mins; Site: left antecubital; 02:20 Follow up: IV Status: Completed infusion j 02:20 Drug: Piperacillin-Tazobactam IVPB 3.375 grams IVPB once over 60 mins; (mix in NS 100 jj7 mL) Route: IVPB; Infused Over: 60 mins; Site: left antecubital; Disposition: 09:02 Co-signature as Attending Physician, Giovanni Umaña MD I reviewed the patient's care rn provided by the Advanced Practice Provider and agree with the diagnosis and treatment plan. Disposition Summary: 08/07/23 00:42 Hospitalization Ordered Notes: Hospitalization Status: Inpatient Admission cp Provider: Tc Bryant cp Location: Telemetry/MedSur (Inpatient) cp Condition: Stable cp Problem: new cp Symptoms: have improved cp Bed/Room Type: Standard cp Room Assignment: 409(08/07/23 01:59) kl Diagnosis - Left sided colitis with rectal bleeding cp - Right Perianal Abscess cp Forms: - Medication Reconciliation Form cp - SBAR form cp - Leadership Thank You Letter cp Signatures: Dispatcher [employer] Fide Ramírez RN RN kl Nieto, Roman, MD MD rn Page, Corey, PA PA cp Yolanda rTejo RN RN jj7 Maddi Gallardo RN RN km8 Mario Torres, RN RN bm8 Corrections: (The following items were deleted from the chart) 08/05 20:02 20:02 CBC+H.LAB.BRZ ordered. EDMS EDMS 20:02 20:02 COMPREHENSIVE METABOLIC PANEL+C.LAB.BRZ ordered. EDMS EDMS 20:02 20:02 LIPASE+C.LAB.BRZ ordered. EDWY EDMS 20:02 20:02 Test, Urine+UC.LAB.BRZ ordered. EDMS EDMS 20:02 20:02 Urinalysis+U.LAB.BRZ ordered. EDMS EDMS 20:02 20:02 PROTIME (+INR)+COAG.LAB.BRZ ordered. EDMS EDMS 20: 20:02 PTT, ACTIVATED+COAG.LAB.BRZ ordered. EDMS EDMS 20:36 20:36 Chest Single View+RAD.RAD.BRZ ordered. EDMS EDMS 20:36 20:36 Abdomen Pelvis W Con+CT.RAD.BRZ ordered. EDMS EDMS 08/06 00:27 00:27 LACTATE+C.LAB.BRZ ordered. EDMS EDMS 00: 00:27 BLOOD CULTURE*+BA.LAB.BRZ ordered. EDMS EDMS 08/05 20:00 Constitutional: Negative for body aches, chills, fever, poor PO intake, cp cp 08/06 00:08/05 20:00 Abdomen/GI: Positive for abdominal pain, rectal bleeding, of the right cp lower quadrant and left lower quadrant, cp 08/06 01:59 00:42 cp kl
[2023-08-07] MEDS ORDERED: NA CHLORIDE 0.9% 1,000 ML ONE ×2 (00:49→01:11)
[2023-08-07] MEDS ORDERED: HYDRALAZINE HCL 20 MG/ML VIAL IV PRN (00:57)
[2023-08-07] MEDS: METRONIDAZOLE 500mg IVPB 500 MG/100 ML BAG IV SCH (01:00)
[2023-08-07] MEDS: D5 0.9 NS 1,000 ML IV SCH (01:00)
--- NOTE | 2023-08-07 01:04 | P.HP ---
Certification for Inpatient Patient admitted to: Observation With expected LOS: <2 Midnights Patient will require the following post-hospital care: None Practitioner: I am a practitioner with admitting privileges, knowledge of patient current condition, hospital course, and medical plan of care. Services: Services provided to patient in accordance with Admission requirements found in Title 42 Section 412.3 of the Code of Federal Regulations Patient History Date of Service: 08/07/23 Reason for admission: Abdominal pain and cramps History of Present Illness: 58-year-old female with no past medical history except for ADHD presenting with sudden onset abdominal pain mainly as cramps lower abdomen, nonradiating associated with nausea but no vomiting. Patient also admits to some diarrhea. Patient developed bloody stools later this evening. She had about 3 bowel movement that was bloodstained but not watery. She denies any sick contact. She denies any fever or chills. She presented to the ED because of presence of blood in the stool. She states she has colonoscopy 12 years ago that showed some polyps as well as some internal hemorrhoids, polyp biopsy was reportedly benign. No family history of any diverticulosis or familial adenomatosis. On arrival in the ED vital signs were stable afebrile, CT of the abdomen and pelvis shows colitis of the left descending colon, also noted deep rectal General surgery has been consulted for incision and drainage in a.m. access over the right gluteal area. Home medications list reviewed: Yes - Past Medical/Surgical History Has patient received pneumonia vaccine in the past: No -: ADHD -: Lap band - Family History Family History: Reviewed- Non-Contributory - Social History Smoking Status: Current every day smoker (Currently vapes,) Counseled patient to stop smoking for: less than 10 minutes Smoking therapy provided: Yes Patient receptive to therapy: No Alcohol use: No CD- Drugs: No Caffeine use: Yes Place of Residence: Home Review of Systems Gastrointestinal: Nausea, Abdominal Pain, Diarrhea, Hematochezia Physical Examination - Physical Exam General: Alert, In no apparent distress, Oriented x3 HEENT: Atraumatic, Normocephalic, PERRLA Neck: Supple, 2+ carotid pulse no bruit, JVD not distended Respiratory: Clear to auscultation bilaterally, Normal air movement Cardiovascular: No edema, Normal pulses, Regular rate/rhythm, Normal S1 S2 Gastrointestinal: Normal bowel sounds, Soft and benign, Non-distended, No tenderness, No masses Musculoskeletal: No clubbing, No swelling Integumentary: No rashes Neurological: Normal speech, Normal strength at 5/5 x4 extr, Normal tone, Sensation intact, Cranial nerves 3-12 intact - Studies Laboratory Data (last 24 hrs) 08/06/23 08/06/23 08/06/23 20:20 20:20 20:20 WBC 12.00 H Hgb 13.8 Hct 40.8 Plt Count 283 PT 11.9 INR 1.08 APTT 31.0 Sodium 135 L Potassium 3.3 L BUN 5 L Creatinine 0.79 Glucose 94 Total Bilirubin 0.7 AST 18 ALT 34 Alkaline Phosphatase 57 Lipase 38 Assessment and Plan - Plan Impression Acute colitis Right perirectal abscess History of ADHD Plan Admit to observation Surgery for I&D in a.m. Start empirical antibiotics Flagyl and Levaquin Gentle IV fluid lactated Ringer's Replace potassium Full liquid diet for now advance as tolerated after I&D SCDs and early ambulation for DVT prophylaxis Possible discharge in 24 to 48 hours May need outpatient colonoscopy after colitis episode resolved, discussed with patient - Advance Directives Does patient have a Living Will: No Does patient have a Durable POA for Healthcare: No Physician Review: Patient Assessed, Agree with Above Assessment and Plan
[2023-08-07] MEDS ORDERED: ONDANSETRON 4 MG/2 ML VIAL ONE (01:10)
[2023-08-07] MEDS ORDERED: MORPHINE 4 MG/ML SYR ONE (01:10)
[2023-08-07] MEDS ORDERED: NA CHLORIDE 0.9% 100 ML ONE (01:40)
[2023-08-07] MEDS ORDERED: PIPERACIL/TAZO 3.375 GM VIAL IV ONE (01:41)
[2023-08-07] MEDS ORDERED: METRONIDAZOLE 500mg IVPB 0 MG/0 ML BAG IV ONE (01:41)
[2023-08-07 03:48] VITALS: BMI 31.5
[2023-08-07] MEDS: Ringers Lactate 1,000 ML IV SCH (03:52)
[2023-08-07] MEDS: Levofloxacin500mg IV 500 MG/100 ML BAG IV SCH (03:52)
[2023-08-07] MEDS: MORPHINE 2 MG/ML SYR IV PRN (05:10)
[2023-08-07] MEDS: HYDROMORPHONE HCL 1 MG/ML INJ IV ONE (08:57)
--- NOTE | 2023-08-07 13:59 | RAD REPORT ---
EXAM DESCRIPTION: CT - Abdomen Pelvis W Contrast - 08/07/2023 3:41 am CLINICAL HISTORY: 38 years Female, ABD PAIN, RECTAL BLEEDING TECHNIQUE: Helical CT axial images are obtained from the lung bases to the pubic symphysis with IV c ontrast. Oral contrast was administered. Multiplanar reconstruction. This exam was performed accordin g to our departmental dose-optimization program, which includes automated exposure control, adjustmen t of the mA and/or kV according to patient size and/or use of iterative reconstruction technique. COMPARISON: None. FINDINGS: LUNG BASES: No basilar consolidation or effusions. LIVER: Normal in size. Normal attenuation. No focal masses. HEPATOBILIARY: Normal-appearing gallbladder. No intra- or extrahepatic ductal dilatation. SPLEEN: Normal size. PANCREAS: Normal size and contour. No focal mass. ADRENAL GLANDS: Normal size. No adrenal masses. KIDNEYS: Bilateral kidneys are normal in size without obstructing calculi or hydronephrosis. No nep hrolithiasis. No significant cysts are present. No focal solid mass. BOWEL AND MESENTERY: Severe wall thickening of the proximal half of the descending colon with subtle pericolonic fat stranding. Mild circumferential rectal wall thickening and question of a developing r ight rectal phlegmon/abscess measuring 1.5 x 1.8 cm TV/AP versus a deep right perianal abscess. Statu s post gastric lap band. Small hiatal hernia. No small or large bowel dilatation. No colonic divertic ulosis. Normal appendix. No abnormal mesenteric lymphadenopathy. No free fluid or pneumoperitoneu m. RETROPERITONEUM: Normal caliber abdominal aorta without aneurysm. No abnormal retroperitoneal lymphad enopathy. PELVIS: Urinary bladder is unremarkable. Uterus and adnexal regions are unremarkable. ABDOMINAL WALL: The abdominal wall is intact. BONES: No suspicious osseous lytic or blastic lesions seen. IMPRESSION: 1. Severe wall thickening of the proximal half of the descending colon with subtle per icolonic fat stranding, consistent with colitis. 2. Mild circumferential rectal wall thickening and question of a developing right rectal phlegmon/a bscess measuring 1.5 x 1.8 cm versus a deep right perianal abscess. 3. Status post gastric lap band. Small hiatal hernia. Electronically signed by: Reji Main MD 08/07/2023 12:03 AM CDT Due to temporary technical issues with the PACS/Fluency reporting system, reports are being signed by the in house radiologists without review as a courtesy to insure prompt reporting. The interpreting radiologist is fully responsible for the content of the report
--- NOTE | 2023-08-07 14:34 | P.PN ---
Date of Service: 08/07/23 Pt seen and examined. Pt is 38 yo female who presents with colitis and perirectal abscess. A/P: Acute colitis: will continue IVF, flagyl and levaquin. F/u blood cx. Right perirectal abscess: Consulted Gen surgeon for further evaluation. Pt is NPO for drainage of abscess. Continue iv abx. History of ADHD: Continue home med DVT prophylaxis: SCD
[2023-08-07] MEDS: DESVENLAFAXINE SUCCINATE 50 MG ER TAB PO SCH (14:36)
[2023-08-07] MEDS: HYDROCODONE/APAP 5/325 MG TAB PO PRN (17:57)
[2023-08-07] MEDS: ONDANSETRON 4 MG/2 ML VIAL IV PRN (22:22)
[2023-08-08 06:29] LABS: Hemoglobin 12.7 g/dL (12.0-15.0); MCH 32.5 pg (27.0-35.0); MCHC 33.3 g/dL (32.0-36.0); MCV 97.5 fL (80-100)
[2023-08-08 06:30] LABS: Absolute Basophils 0.1 K/uL (0-0.5); Absolute Eosinophils 0.3 K/uL (0-0.5); Absolute Lymphocytes (CBC) 1.6 K/uL (0.7-4.9); Absolute Monocytes 0.8 K/uL (0.1-1.3); Absolute Neutrophil 7.8 K/uL (1.8-8.0); Basophils % 1.2 % (0-1.3); Eosinophils % 2.7 % (0-4.4); MPV 9.2 fL (7.6-11.3); Monocytes % 7.2 % (3.3-12.3); Neutrophils % 73.9 % (41.7-73.7); Platelets 232 thou/uL (152-406); Red Cell Distribution Width 13.6 % (12.1-15.2)
[2023-08-08 06:50] LABS: ALT/SGPT 27 U/L (13-56); AST/SGOT 14 U/L (15-37); Albumin 3.3 g/dL (3.4-5.0); Albumin/Globulin Ratio 1.1 (1.1-1.8); Alkaline Phosphatase 51 U/L (45-117); Anion Gap 5.9 mEq/L (5.0-15.0); BUN Blood Urea Nitrogen < 3 mg/dL (7-18); Bicarbonate 30 mEq/L (21-32); Bilirubin Total 0.4 mg/dL (0.2-1.0); Globulin 3.1 g/dL (2.3-3.5); Glomerular Filtration Rate 96 ml/min (=/>90); Glucose Level 113 mg/dL (74-106); Potassium 3.9 mEq/L (3.5-5.1); Protein, Total 6.4 g/dL (6.4-8.2); Sodium Level 138 mEq/L (136-145)
[2023-08-08] MEDS: BUPIVACAINE 0.25% PF 30 ML VIAL ONE (11:59)
[2023-08-08] MEDS ORDERED: propofoL 200 MG/20 ML VIAL IV ONE (12:16)
[2023-08-08] MEDS ORDERED: LIDOCAINE 1% MPF 5 ML VIAL ONE ×2 (12:16→12:22)
[2023-08-08] MEDS ORDERED: FENTANYL CITR 100 MCG/2 ML ONE (12:19)
[2023-08-08] MEDS ORDERED: MIDAZOLAM HCL 2 MG/2 ML INJ ONE (12:25)
--- NOTE | 2023-08-08 13:09 | P.PN ---
Subjective Date of Service: 08/08/23 Chief Complaint: Abdominal pain and cramps Subjective: Other (Pt was NPO yesterday but was given more IV abx prior to surgical I&D. Dr. Juarez to reassess today) <Latosha Jensen - Last Filed: 08/08/23 13:09> Date of Service: 08/08/23 <Celia Irizarry - Last Filed: 08/08/23 13:36> Review of Systems 10-point ROS is otherwise unremarkable General: As per HPI Gastrointestinal: As per HPI <Latosha Jensen - Last Filed: 08/08/23 13:09> Physical Examination - Vital Signs Temperature: 97.7 F Blood Pressure: 113/60 Pulse: 60 Respirations: 16 Pulse Ox (%): 100 - Physical Exam General: Alert, In no apparent distress, Oriented x3 HEENT: Atraumatic, Normocephalic Neck: 2+ carotid pulse no bruit Respiratory: Normal air movement Cardiovascular: Normal pulses, No murmurs Capillary refill: <2 Seconds Gastrointestinal: Normal bowel sounds, Soft and benign, Other (tenderness to perianal area) Musculoskeletal: No clubbing Integumentary: No rashes Neurological: Normal speech, Normal tone Lymphatics: No axilla or inguinal lymphadenopathy External genitalia: Deferred Rectal: Deferred <Latosha Jensen - Last Filed: 08/08/23 13:09> Assessment And Plan - Plan Impression Acute colitis Right perirectal abscess History of ADHD Plan Admit to observation Surgery for 08/07 Started empirical Flagyl and Levaquin Gentle IV fluid lactated Ringer's Replace potassium - repleted Full liquid diet for now advance as tolerated after I&D, NPO for procedure 08/07 SCDs and early ambulation for DVT prophylaxis Possible discharge in 24 hours Will need outpatient colonoscopy after colitis episode resolved, discussed with patient - Advance Directives Does patient have a Living Will: No Does patient have a Durable POA for Healthcare: No Physician Review: Patient Assessed, Agree with Above Assessment and Plan Physician Review: Patient Assessed, Agree with Above Assessment and Plan <Latosha Jensen - Last Filed: 08/08/23 13:09> - Plan Pt seen and examined. I agree withe the note by the ART HISTORY PROFESSOR. Gen surgeon will take pt to the OR today. Will continue IVF and iv abx. <Celia Irizarry - Last Filed: 08/08/23 13:36>
[2023-08-08] MEDS: METHYLENE BLUE 1% 10 ML VIAL ONE (13:18)
[2023-08-08] MEDS: LIDOCAINE HCL/EPINEPHRINE 20 ML MDV ONE (13:18)
--- NOTE | 2023-08-08 13:50 | P.OP ---
Preoperative diagnosis: Perirectal Abscess Postoperative diagnosis: Perirectal Abscess Primary procedure: Exam Under Anesthesia Secondary procedure: Incision and Drainage of Perirectal Abscess Anesthesia: GETA + Local Estimated blood loss: <5cc Specimen: Cultures Findings: ~ 1cm abscess off midline @ 6cm Complications: None Transferred to: Recovery Room Condition: Good
[2023-08-08] MEDS: HYDROMORPHONE HCL 1 MG/ML INJ ONE (14:10)
[2023-08-08] MEDS: Ringers Lactate 1,000 ML IV ONE (14:28)
--- NOTE | 2023-08-08 20:17 | OP ---
Date of Procedure: 08/08/2023 Surgeon: Danny Juarez MD, Preoperative Diagnosis: Perirectal abscess. Postoperative Diagnosis: Perirectal abscess. Procedures Performed: 1.Exam under anesthesia. 2.Incision and drainage of perirectal abscess. Anesthesia: General endotracheal plus local with 1% lidocaine with epinephrine. Estimated Blood Loss: Less than 5 cc. Specimen: Culture sent for both aerobic and anaerobic speciation. Findings: Approximately 1 cm abscess off midline and near the 6 o'clock position. Complications: None. Disposition: Patient transferred to recovery room in good condition. Procedure In Detail: After informed consent was obtained, patient was brought to the operating room, prepped and draped in the usual sterile fashion after adequate anesthesia was achieved. I injected an area at the 6 o'clock position where palpation of fluctuance was appreciated. At this point, meth ylene blue was placed in this area. I placed the anoscope into the rectal canal and did not visualiz e any methylene blue emanating into the rectal vault, at this point. I then irrigated the area and p roceeded to make an off midline incision slightly to the right of midline. At this point, I dissecte d down into the deep tissue plane, palpating an abscess which was not near the skin surface, but rath er to the right of midline tracking along the rectal wall. At this point, approximately 1 cm abscess was opened. Culture sent both for aerobic and anaerobic speciation, at this time. This was complet kapil unroofed at this point, irrigated copiously and I packed the wound with 0.25 inch iodoform packin g, at this point. A sterile dressing was placed over top. The patient tolerated the procedure witho ut incident or complications, transferred to the PACU in good condition. All counts were correct at the end of the case. BULMARO/MARVIN Voice ID: [id number] Report ID: [id number]
[2023-08-08] MEDS: MAGNES/ALUMIN/SIMET 30ML UCUP PO PRN (21:36)
[2023-08-09 06:51] LABS: Anion Gap 7.6 mEq/L (5.0-15.0); Bicarbonate 29 mEq/L (21-32); Glomerular Filtration Rate 99 ml/min (=/>90); Glucose Level 105 mg/dL (74-106); Potassium 3.6 mEq/L (3.5-5.1); Sodium Level 139 mEq/L (136-145)
[2023-08-09 06:56] LABS: Absolute Basophils 0.1 K/uL (0-0.5); Absolute Eosinophils 0.4 K/uL (0-0.5); Absolute Lymphocytes (CBC) 1.7 K/uL (0.7-4.9); Absolute Monocytes 0.6 K/uL (0.1-1.3); Absolute Neutrophil 5.5 K/uL (1.8-8.0); Basophils % 1.8 % (0-1.3); Eosinophils % 4.7 % (0-4.4); Hematocrit 33.2 % (36.0-45.0); Hemoglobin 11.4 g/dL (12.0-15.0); Lymphocytes % 20.2 % (15.3-44.8); MCH 33.1 pg (27.0-35.0); MCHC 34.3 g/dL (32.0-36.0); MCV 96.5 fL (80-100); MPV 9.2 fL (7.6-11.3); Monocytes % 7.4 % (3.3-12.3); Neutrophils % 65.9 % (41.7-73.7); Platelets 231 thou/uL (152-406); RBC Red Blood Cell Count 3.44 M/uL (3.86-4.86); Red Cell Distribution Width 13.6 % (12.1-15.2)
[2023-08-09 07:21] LABS: BUN Blood Urea Nitrogen < 3 mg/dL (7-18)
--- NOTE | 2023-08-09 09:04 | RAD REPORT ---
EXAM DESCRIPTION: US - Abdomen Exam Limited - 08/09/2023 8:24 am CLINICAL HISTORY: abdominal pain COMPARISON: No comparisons FINDINGS: The gallbladder demonstrates no gallstones. No pericholecystic fluid or gallbladder wall t hickening. The common bile duct is normal measuring 3 mm. The liver demonstrates no findings of intrahepatic biliary dilatation. IMPRESSION: Unremarkable examination.
[2023-08-09] MEDS ORDERED: SIMETHICONE 125 MG TAB PO PRN (09:49)
[2023-08-09] MEDS ORDERED: SODIUM CHLORIDE 0.9% 10ML INJ IV PRN (09:49)
--- NOTE | 2023-08-09 12:53 | P.PN ---
Subjective Date of Service: 08/09/23 Chief Complaint: Abdominal pain and cramps Pt is resting comfortably in bed. She complains of RUQ pain after she ate. Abd ultrasound is unremarkable. POD #1 s/p drainage of perirectal abscess. Continue iv abx. No other complaints. Review of Systems General: Unremarkable Eyes: Unremarkable ENT: Unremarkable Respiratory: Unremarkable Cardiovascular: Unremarkable Gastrointestinal: Abdominal Pain Genitourinary: Unremarkable Musculoskeletal: Unremarkable Integumentary: Unremarkable Neurological: Unremarkable Lymphatics: Unremarkable Physical Examination - Vital Signs Temperature: 97.9 F Blood Pressure: 102/61 Pulse: 64 Respirations: 98 Pulse Ox (%): 100 - Physical Exam General: Alert, In no apparent distress, Oriented x3 HEENT: Atraumatic, Normocephalic, PERRLA Neck: Supple, 2+ carotid pulse no bruit Respiratory: Clear to auscultation bilaterally, Normal air movement Cardiovascular: No edema, Normal pulses, Regular rate/rhythm Capillary refill: <2 Seconds Gastrointestinal: Normal bowel sounds, Soft and benign, Non-distended, Te nderness Musculoskeletal: No clubbing, No swelling Integumentary: No rashes, No breakdown Neurological: Normal speech, Normal strength at 5/5 x4 extr, Normal tone Lymphatics: No axilla or inguinal lymphadenopathy - Studies Microbiology Data (last 24 hrs): 08/08/23 13:25 Wound - Perianal Gram Stain - Final 08/08/23 13:25 Wound - Perianal Gram Stain - Final Assessment And Plan - Plan Acute colitis: Will continue iv levaquin, IVF, and flagyl. Will f/u blood cx. Pt will need colonoscopy after resolution of colitis. RUQ abd pain: It started after she ate. Abd ultrasound is unremarkable. Low t hreshold to order HIDA scan. LFTs are unremarkable. Right perirectal abscess: S/p drainage. POD#1. History of ADHD: continue home med. DVT ppx: SCD Dispo: Pending hospital course. Physician Review: Patient Assessed, Agree with Above Assessment and Plan
--- NOTE | 2023-08-09 16:43 | EKG ---
Test Date: 2023-08-08 Test Time: 19:21:53 Garment [employer] Cutter Machine: MALENA MEASUREMENT RESULTS: Intervals: Rate: 63 CT: 160 QRSD: 62 QT: 398 QTc: 407 [place]: P: 25 CT: 160 QRS: 11 T: 19 INTERPRETIVE STATEMENTS: Poor data quality, interpretation may be adversely affected Normal sinus rhythm Junctional ST depression, probably abnormal Abnormal ECG Compared to ECG 08/06/2023 19:59:59 ST (T wave) deviation now present Ventricular premature complex(es) no longer present Electronically Signed On 08-09-23 16:41:39 CDT by Rafael Gregorio
--- NOTE | 2023-08-09 16:54 | EKG ---
Test Date: 2023-08-06 Test Time: 19:59:59 Film Composer: ABIGAIL MEASUREMENT RESULTS: Intervals: Rate: 83 MT: 166 QRSD: 72 QT: 394 QTc: 462 [place]: P: 56 MT: 166 QRS: 30 T: 46 INTERPRETIVE STATEMENTS: Sinus rhythm with occasional premature ventricular complexes Otherwise normal ECG No previous ECG available for comparison Electronically Signed On 08-09-23 16:44:53 CDT by Rafael Gregorio
[2023-08-09] MEDS: PANTOPRAZOLE 40 MG INJ IVP SCH (18:51)
[2023-08-09] MEDS: PROMETHAZINE INJ 25 MG/ML AMP IV ONE (18:51)
[2023-08-09] MEDS: Levofloxacin 750mg IV 750 MG/150 ML BAG IV SCH (20:22)
[2023-08-09] MEDS ORDERED: PANTOPRAZOLE 40 MG INJ IVP SCH (21:00)
[2023-08-09 22:49] VITALS: O2SAT 96
[2023-08-10 04:16] LABS: Absolute Neutrophil 3.4 K/uL (1.8-8.0); Basophils % 1.8 % (0-1.3); Eosinophils % 6.4 % (0-4.4); Hematocrit 32.2 % (36.0-45.0); Hemoglobin 11.2 g/dL (12.0-15.0); Lymphocytes % 28.5 % (15.3-44.8); MCH 33.3 pg (27.0-35.0); MCHC 34.6 g/dL (32.0-36.0); MCV 96.2 fL (80-100); MPV 9.1 fL (7.6-11.3); Monocytes % 9.3 % (3.3-12.3); Nucleated Red Blood Cells % 0.3 % (0-0); Platelets 229 thou/uL (152-406); RBC Red Blood Cell Count 3.35 M/uL (3.86-4.86); Red Cell Distribution Width 13.5 % (12.1-15.2)
[2023-08-10 04:17] LABS: Absolute Basophils 0.1 K/uL (0-0.5); Absolute Eosinophils 0.4 K/uL (0-0.5); Absolute Lymphocytes (CBC) 1.8 K/uL (0.7-4.9); Absolute Monocytes 0.6 K/uL (0.1-1.3)
[2023-08-10 04:30] LABS: Anion Gap 6.8 mEq/L (5.0-15.0); Potassium 3.8 mEq/L (3.5-5.1)
[2023-08-10 13:24] VITALS: BP 127/67; TEMP 98.6
--- NOTE | 2023-08-10 13:44 | P.DS ---
Admission Date: 08/08/23 Discharge Date: 08/10/23 Reason for Admission: Abdominal pain and cramps Consultations: Dr. Juarez Procedures: Surgical I&D of rectal abscess Brief History of Present Illness: 38-year-old female with no past medical history except for ADHD presenting with sudden onset abdominal pain mainly as cramps lower abdomen, nonradiating associated with nausea but no vomiting. Patient also admits to some diarrhea. Patient developed bloody stools later this evening. She had about 3 bowel movement that was bloodstained but not watery. She denies any sick contact. She denies any fever or chills. She presented to the ED because of presence of blood in the stool. She states she has colonoscopy 12 years ago that showed some polyps as well as some internal hemorrhoids, polyp biopsy was reportedly benign. No family history of any diverticulosis or familial adenomatosis. On arrival in the ED vital signs, were stable afebrile, CT of the abdomen and pelvis shows colitis of the left descending colon, also noted deep rectal abscess. General surgery has been consulted for incision and drainage in a.m. access over the right gluteal area. Hospital Course: Mrs. Teixeira did well over the course of the hospitalization. She was taken to the OR for I&D of the perirectal abscess. Postsurgical sharp pains to the right upper quadrant radiating to the back were felt to be gas pains. As she was very uncomfortable despite simethicone and ambulation her gallbladder was evaluated by ultrasound. No findings of concern in the gallbladder. CT evaluation prior to the surgical procedure showed colitis. Mrs. Teixeira is aware that after 8 to 12 weeks she will need a colonoscopy. She has done well with Levaquin and Flagyl IV and these will be transitioned to p.o. for continua tion for another 7 days. <Latosha Jensen - Last Filed: 08/10/23 13:44> Admission Date: 08/08/23 Discharge Date: 08/10/23 Hospital Course: Pt seen and examined. I agree with the note by the CERTIFIED CORPORATE TRAVEL EXECUTIVE. Ok to discharge pt with po abx. Follow up with GI in 8 - 12 weeks for colonoscopy <Celia Irizarry - Last Filed: 08/10/23 14:36> Disposition: ROUTINE DISCHARGE Discharge Condition: GOOD Vital Signs/Physical Exam: Temp Pulse Resp BP Pulse Ox 98.6 F 66 16 127/67 100 08/10/23 12:00 08/10/23 12:00 08/10/23 12:00 08/10/23 12:00 08/10/23 12:00 General: Alert, In no apparent distress, Oriented x3 HEENT: Atraumatic, Normocephalic Neck: Supple, JVD not distended Respiratory: Clear to auscultation bilaterally, Normal air movement Cardiovascular: Normal pulses, Regular rate/rhythm Capillary refill: <2 Seconds Gastrointestinal: Normal bowel sounds, Soft and benign Musculoskeletal: No clubbing Integumentary: No rashes Neurological: Normal speech, Normal tone Lymphatics: No axilla or inguinal lymphadenopathy External genitalia: Deferred Rectal: Deferred Laboratory Data at Discharge: WBC 6.30 thou/uL (4.3-10.9) 08/10/23 04:03 Hgb 11.2 g/dL (12.0-15.0) L 08/10/23 04:03 Hct 32.2 % (36.0-45.0) L 08/10/23 04:03 Plt Count 229 thou/uL (152-406) 08/10/23 04:03 PT 11.9 SECONDS (9.5-12.5) 08/06/23 20:20 INR 1.08 08/06/23 20:20 APTT 31.0 SECONDS (24.3-36.9) 08/06/23 20:20 Sodium 139 mEq/L (136-145) 08/10/23 04:03 Potassium 3.8 mEq/L (3.5-5.1) 08/10/23 04:03 BUN 4 mg/dL (7-18) L 08/10/23 04:03 Creatinine 0.67 mg/dL (0.55-1.02) 08/10/23 04:03 Glucose 107 mg/dL (74-106) H 08/10/23 04:03 Total Bilirubin 0.4 mg/dL (0.2-1.0) 08/08/23 06:16 AST 14 U/L (15-37) L 08/08/23 06:16 ALT 27 U/L (13-56) 08/08/23 06:16 Alkaline Phosphatase 51 U/L (45-117) 08/08/23 06:16 Lipase 38 U/L (13-75) 08/06/23 20:20 <Latohsa Jensen Wagner - Last Filed: 08/10/23 13:44> Vital Signs/Physical Exam: Temp Pulse Resp BP Pulse Ox 98.6 F 66 16 127/67 100 08/10/23 12:00 08/10/23 12:00 08/10/23 12:00 08/10/23 12:00 08/10/23 12:00 Laboratory Data at Discharge: WBC 6.30 thou/uL (4.3-10.9) 08/10/23 04:03 Hgb 11.2 g/dL (12.0-15.0) L 08/10/23 04:03 Hct 32.2 % (36.0-45.0) L 08/10/23 04:03 Plt Count 229 thou/uL (152-406) 08/10/23 04:03 PT 11.9 SECONDS (9.5-12.5) 08/06/23 20:20 INR 1.08 08/06/23 20:20 APTT 31.0 SECONDS (24.3-36.9) 08/06/23 20:20 Sodium 139 mEq/L (136-145) 08/10/23 04:03 Potassium 3.8 mEq/L (3.5-5.1) 08/10/23 04:03 BUN 4 mg/dL (7-18) L 08/10/23 04:03 Creatinine 0.67 mg/dL (0.55-1.02) 08/10/23 04:03 Glucose 107 mg/dL (74-106) H 08/10/23 04:03 Total Bilirubin 0.4 mg/dL (0.2-1.0) 08/08/23 06:16 AST 14 U/L (15-37) L 08/08/23 06:16 ALT 27 U/L (13-56) 08/08/23 06:16 Alkaline Phosphatase 51 U/L (45-117) 08/08/23 06:16 Lipase 38 U/L (13-75) 08/06/23 20:20 <Celia Irizarry - Last Filed: 08/10/23 14:36> Diet: [place] Activity: Ad patricia <Latosha Jensen - Last Filed: 08/10/23 13:44> <Celia Irizarry - Last Filed: 08/10/23 14:36> Home Medications: Desvenlafaxine Succinate [Pristiq ER] 50 mg PO DAILY 08/07/23 Dextroamphetamine/Amphetamine [Adderall 30 mg Tablet] 30 mg PO DAILY 08/07/23 Dicyclomine [Bentyl*] 20 mg PO TID PRN #30 cap 08/10/23 levoFLOXacin [Levaquin] 500 mg PO DAILY #7 tab 08/10/23 metroNIDAZOLE [Flagyl] 500 mg PO Q8H #21 tab 08/10/23 New Medications: Dicyclomine [Bentyl*] 20 mg PO TID PRN #30 cap PRN Reason: Abdominal Cramps metroNIDAZOLE [Flagyl] 500 mg PO Q8H #21 tab levoFLOXacin [Levaquin] 500 mg PO DAILY #7 tab Physician Discharge Instructions: Okay to DC IV and DC home Follow-up with primary care provider in 1 to 2 weeks Follow-up with Dr. Juarez in 1 week [phone] Please call the inpatient unit for any questions or concerns regarding hospital stay Return to the ER for worsening symptoms Mrs. Teixeira did well over the course of the hospitalization. She was taken to the OR for I&D of the perirectal abscess. Postsurgical sharp pains to the right upper quadrant radiating to the back were felt to be gas pains. As she was very uncomfortable despite simethicone and ambulation her gallbladder was evaluated by ultrasound. No findings of concern in the gallbladder. CT evaluation prior to the surgical procedure showed colitis. Mrs. Teixeira is aware that after 8 to 12 weeks she will need a colonoscopy. She has done well with Levaquin and Flagyl IV and these will be transitioned to p.o. for continuation for another 7 days. Levaquin 500mg po daily x 7 days Flagyl 500mg po TID x 7 days Simethicone 250mg po TID prn Dicyclomine 20mg po TID prn pain Followup: NONE,NONE [Primary Care Provider] - Danny Juarez MD [ACTIVE - CAN ADMIT] -
== END 2023-08-10 17:09 | disposition home or self-care (01) | DRG 345 ==
LOC: ER 19:25 → ERHOLD 08-07 00:54 → 4TH 08-07 02:08 → OBSVTOIN 08-08 16:30
PROVIDERS: ADMIT Internal Medicine; ATTEND Hospitalist
PROC: 0D9P0ZZ Drainage of Rectum, Open Approach (ICD-10-PCS; principal; 2023-08-08 12:45)
DX: K61.0 Anal abscess (principal); K51.511 Left sided colitis with rectal bleeding; F90.9 Attention-deficit hyperactivity disorder, unspecified type; F17.290 Nicotine dependence, other tobacco product, uncomplicated; Z71.6 Tobacco abuse counseling; Z98.84 Bariatric surgery status; Z79.899 Other long term (current) drug therapy
CPT/HCPCS: 36415; 71045; 74177; 76705; 80048; 80053; 81003; 81025; 83605; 83690; 84484; 85025; 85610; 85730; 87040; 87070; 87075; 87205; 93005; 99285; C9113; G0378; J1170; J2001; J2250; J2270; J2405; J2543; J2550; J2704; J3010; J7030; J7120; Q9967